=== PATIENT | female | born 1985 | race Caucasian/White ===

== ENCOUNTER 2020-06-30 15:05 | Emergency (ER) | payer OTHER ==
[2020-06-30] MEDS ORDERED: Ketorolac Tromethamine 15 MG/ML VIAL ONE (15:30)
[2020-06-30 15:46] LABS: #Eosinphils 0.1 10x3/uL (0.0-0.5); #Monocytes 0.6 10x3/uL (0.0-1.1); #Neutrophils 6.9 10x3/uL (1.5-8.4); %Basophils 0.2 % (0.0-2.0); %Eosinophils 1.5 % (0.0-6.0); %Lymphocytes 20.4 % (18.0-47.0); %Monocytes 6.2 % (0.0-10.0); %Neutrophils 71.4 % (40.0-75.0); Hemoglobin 12.4 g/dL (12.0-15.5); Mean Corpuscular HGB CONC 32.7 g/dL (32.0-36.0); Mean Corpuscular Volume 85.6 fl (81.6-98.3); Mean Platelet Volume 10.5 fl (7.4-10.4); Platelet Count 203 10x3/uL (150-450); RBC Distribution Width 13.1 % (11.5-14.5); Red Blood Cell (RBC) Count 4.43 10x6/uL (3.90-5.03); White Blood Cell (WBC) Count 9.6 10x3/uL (3.5-10.5)
[2020-06-30 16:03] LABS: ALT (SGPT) 59 U/L (8-55); AST (SGOT) 106 U/L (5-34); Albumin 4.3 g/dL (3.5-5.0); Alkaline Phosphatase 114 U/L (40-110); Anion Gap 13 mmol/L (10-20); BUN (Urea Nitrogen) 10 mg/dL (7.0-18.7); Bilirubin, Total 0.3 mg/dL (0.2-1.2); Calc. Creatinine Clearance 0 mL/min (70-130); Calcium 9.2 mg/dL (7.8-10.44); Carbon Dioxide 27 mmol/L (22-29); Chloride 104 mmol/L (98-107); Globulin 3.1 g/dL (2.4-3.5); Glucose 104 mg/dL (70-105); Lipase 70 U/L (8-78); Potassium 3.7 mmol/L (3.5-5.1); Protein, Total 7.4 g/dL (6.0-8.3); Sodium 140 mmol/L (136-145)
[2020-06-30 16:52] LABS: Bilirubin Neg (Negative); Blood, Urine Negative (Negative); Clarity Clear (Clear); Glucose, Urine (Dipstick) Normal (Negative); Ketone, Urine Negative (Negative); Leukocyte Negative (Negative); Nitrite Negative (Negative); Protein, Urine (Dipstick) Negative (Neg-Trace); Urobilinogen Normal mg/dL (Less than 2)
[2020-06-30 16:56] LABS: Pregnancy Test - Urine (BHCG) Negative (Negative)
[2020-06-30 16:57] LABS: Pregu Control Background? CLEAR/WHITE (CLR/WHITE); Pregu Control Bar Appear? YES (CONTROL BAR)
== END 2020-06-30 17:32 | disposition home or self-care (01) ==
LOC: CSHERS 15:05
DX: K80.20 Calculus of gallbladder without cholecystitis without obstruction (principal)
CPT/HCPCS: 76705; 80053; 81003; 81025; 83690; 85025; 96374; J1885

== ENCOUNTER 2020-07-03 13:21 | Outpatient (CLI) | payer OTHER ==
[2020-07-03 15:19] LABS: BHCG - Serum Negative (NEGATIVE)
[2020-07-03 15:20] LABS: Pregs Control Background? CLEAR/WHITE (CLR/WHITE); Pregs Control Bar Appear? YES (CONTROL BAR)
[2020-07-04 01:14] LABS: SARS-CoV-2 PCR by NAA Not Detected (NotDetected)
== END 2020-07-03 13:22 | disposition home or self-care (01) ==
LOC: CSHLAB 13:21
PROVIDERS: ATTEND Surgery
DX: Z01.812 Encounter for preprocedural laboratory examination (principal); Z20.822 Contact with and (suspected) exposure to COVID-19; K80.20 Calculus of gallbladder without cholecystitis without obstruction
CPT/HCPCS: 84703; 87635; U0003; U0005

== ENCOUNTER 2020-07-05 06:46 | Day surgery (SDC) | payer OTHER ==
[2020-07-04 11:43] VITALS: BMI 30.5
[2020-07-05] MEDS ORDERED: Lidocaine 1% MPF 2 ML VIAL ONE (08:19)
[2020-07-05] MEDS ORDERED: EPINEPHrine 1 MG/ML AMP ONE (09:16)
[2020-07-05] MEDS ORDERED: Bupivacaine PF 0.5% 30 ML VIAL ONE (09:16)
[2020-07-05] MEDS ORDERED: Midazolam HCl 2 mg/2 ml Vial ONE ×2 (09:29→09:41)
[2020-07-05] MEDS ORDERED: PROPOFOL 20 ML ONE (09:41)
[2020-07-05] MEDS ORDERED: Fentanyl 100 MCG/2 ML VIAL ONE (09:41)
[2020-07-05] MEDS ORDERED: Ketorolac Tromethamine 15 MG/ML VIAL ONE (09:41)
[2020-07-05] MEDS ORDERED: HYDROmorphone 0.5 MG/0.5 ML SYRINGE ONE (10:00)
[2020-07-05] MEDS ORDERED: PHENYLEPHRINE-NS 100 MCG/ML 10 ML SYRINGE ONE (10:13)
[2020-07-05] MEDS ORDERED: HYDROcodone/Acetaminophen 5/325 mg Tablet PO PRN (11:12)
[2020-07-05] MEDS ORDERED: Morphine 4 MG/ML VIAL ONE ×2 (11:31→11:43)
[2020-07-05] MEDS ORDERED: Ondansetron ODT 4 MG TAB ONE (12:56)
== END 2020-07-05 13:45 | disposition home or self-care (01) ==
LOC: CSHSDC 06:46
PROVIDERS: ATTEND Surgery
PROC: 0FT44ZZ Resection of Gallbladder, Percutaneous Endoscopic Approach (ICD-10-PCS; principal; 2020-07-05)
DX: K80.10 Calculus of gallbladder with chronic cholecystitis without obstruction (principal)
CPT/HCPCS: 88304; J0171; J0690; J1170; J1885; J2250; J2270; J2704; J3010; Q0162; S0020